=== PATIENT | male | born 1980 | race Caucasian/White ===

== ENCOUNTER → 2018-01-03 | Outpatient (CLI) | payer BC ==
--- NOTE | 2018-01-04 08:15 | MR ---
EXAMINATION TYPE: MR knee RT wo con DATE OF EXAM: 01/03/2018 COMPARISON: 11/30/2017 outside radiographs of the right knee HISTORY: Rt knee pain x 6 mos TECHNIQUE: Multiplanar, multisequence imaging of the right knee is performed without IV contrast. FINDINGS: MEDIAL MENISCUS: .Anterior and posterior horns are intact without tear. LATERAL MENISCUS: There is abnormal morphology and longitudinal tear of the anterior horn of the late ral meniscus with thickening of the meniscal femoral ligament, associated 3 mm meniscal extrusion, an d 8 mm parameniscal cyst CRUCIATE LIGAMENTS: The anterior and posterior cruciate ligaments are intact and unremarkable. COLLATERAL LIGAMENTS: The medial collateral ligament and lateral collateral ligament complex are inta ct and unremarkable. EXTENSOR MECHANISM: Visualized quadriceps and patellar tendons are intact. There is minimal intrinsic high signal within the insertional fibers of the quadriceps tendon indicative of mild tendinosis. EFFUSION: No significant suprapatellar joint effusion. POPLITEAL CYST: Very small unilocular popliteal cyst is present. TRICOMPARTMENT SPACES: There are small superior patellar pole and lateral compartment marginal osteop hytes. Very small marginal osteophyte is seen of the anterior medial distal femoral condyle. CARTILAGE: Focal signal abnormality is seen of the lateral facet patellar cartilage with fissure supe riorly. Generalized thinning of the medial facet is noted. Trochlear cartilage is unremarkable. No fu ll or partial thickness defect is seen of the medial compartment, however there is signal heterogenei ty of the cartilage. Partial thickness cartilaginous defect of the lateral compartment measures 1.0 x 1.2 cm at the medial anterior weightbearing surface. BONE MARROW SIGNAL: No focal abnormal marrow signal is appreciated. OTHER: Minimal nonspecific infrapatellar subcutaneous edema seen. IMPRESSION: 1. Longitudinal tear of the anterior horn of the lateral meniscus with associated 3 mm meniscal extru rosalie and 8 mm parameniscal cyst. 2. Mild quadriceps insertional tendinosis. 3. Mild tricompartmental arthrosis and chondrosis with partial-thickness cartilaginous defect of the weightbearing surface of the lateral compartment measuring 1.0 x 1.2 cm.
== END | disposition home or self-care (01) ==
LOC: RADMRIMAIN 15:39
PROVIDERS: ATTEND Orthopaedic Surgery
DX: S83.281A Other tear of lateral meniscus, current injury, right knee, initial encounter (principal); M17.11 Unilateral primary osteoarthritis, right knee

== ENCOUNTER → 2018-07-25 | Outpatient (CLI) | payer BC ==
[2018-07-25 15:49] LABS: Basophils # (A) 0.1 k/uL (0-0.2); Basophils % (A) 1 %; Eosinophils # (A) 0.2 k/uL (0-0.7); Eosinophils % (A) 2 %; HCT 44.5 % (39.0-53.0); HGB 14.6 gm/dL (13.0-17.5); Lymphocytes # (A) 3.5 k/uL (1.0-4.8); Lymphocytes % (A) 38 %; MCH 28.4 pg (25.0-35.0); MCHC 32.8 g/dL (31.0-37.0); MCV 86.6 fL (80.0-100.0); Mean Platelet Volume 6.8; Monocytes # (A) 0.6 k/uL (0-1.0); Monocytes % (A) 7 %; Neutrophils # (A) 4.7 k/uL (1.3-7.7); Neutrophils % (A) 50 %; Platelet Count 286 k/uL (150-450); RBC 5.14 m/uL (4.30-5.90); RDW 13.2 % (11.5-15.5); WBC 9.3 k/uL (3.8-10.6)
[2018-07-25 16:02] LABS: Potassium 3.9 mmol/L (3.5-5.1)
== END | disposition home or self-care (01) ==
LOC: LABPAT 15:04
PROVIDERS: ATTEND Orthopaedic Surgery
DX: Z01.818 Encounter for other preprocedural examination (principal); Z01.812 Encounter for preprocedural laboratory examination; M23.91 Unspecified internal derangement of right knee
CPT/HCPCS: 36415; 80051; 85025; 93005

== ENCOUNTER 2018-08-04 10:49 | Day surgery (SDC) | payer BC ==
[2018-08-02 14:51] VITALS: BMI 38.2
--- NOTE | 2018-08-03 17:21 | HP ---
HISTORY AND PHYSICAL DATE OF SURGERY: 08/04/2018 Rolo Mason is a 37-year-old patient seen with progressive right knee pain. We discussed options. He elected to proceed with arthroscopy. Consent was obtained. PAST MEDICAL HISTORY: Asthma. PAST SURGICAL HISTORY: Gastric sleeve, right knee arthroscopy. DAILY MEDICATIONS: Pristiq. ALLERGIES: NONE. SOCIAL HISTORY: Patient denies tobacco use. PHYSICAL EVALUATION OF RIGHT KNEE: Range of motion is 0 to 120 degrees. Mild effusion. Tenderness along the medial and lateral joint lines. Positive medial Patrice's. Positive lateral Patrice's. Ligaments are stable. Hip rotation is without pain. Distal neurovascular exam is intact. RADIOGRAPHS: Radiographs of the right knee revealed mild osteoarthritis. MRI of the right knee revealed a lateral meniscal tear. IMPRESSION: 1. Internal derangement of right knee with lateral meniscal tear. 2. Asthma. PLAN: Right knee arthroscopy with partial meniscectomy and debridement. MMODL / IJN: [id number] /
[~2018-08-04 10:49] MED LIST: DEXAMETHASONE SOD PHOSPHATE 10 MG/ML 1 ML VIAL IV ONE; LACTATED RINGERS 1,000 ML IV SCH; LIDOCAINE 1% 20 ML VIAL (10MG/ML) FOR IV START INTRADERMA PRN; MIDAZOLAM (PF) 2 MG/2 ML VIAL IV PRN; ONDANSETRON 4 MG/2 ML VIAL IVP ONE; ceFAZolin IN SWFI 2 GM/20 ML SYRINGE IVP ONE; fentaNYL (PF) 50 MCG/ML 2 ML AMP IV PRN
[2018-08-04] MEDS ORDERED: SUCCINYLCHOLINE CHLORIDE 100 MG/5 ML SYR IV ONE (12:18)
[2018-08-04] MEDS ORDERED: PROPOFOL 10 MG/ML 20 ML VIAL IV ONE (12:18)
[2018-08-04] MEDS ORDERED: LIDOCAINE 1% INJ 10MG/ML (20 ML MDV) ONE (12:18)
[2018-08-04] MEDS ORDERED: fentaNYL (PF) 50 MCG/ML 2 ML AMP ONE (12:18)
[2018-08-04] MEDS ORDERED: MIDAZOLAM 2 MG/2 ML VIAL ONE (12:18)
[2018-08-04] MEDS ORDERED: LACTATED RINGERS 1,000 ML IV ONE (13:08)
--- NOTE | 2018-08-04 13:23 | P.OP ---
Date of Procedure: 08/04/18 Preoperative Diagnosis: Internal derangement right knee Postoperative Diagnosis: 1. Lateral meniscal tear right knee 2. Reactive synovitis lateral and suprapatellar compartments right knee 3. Loose body right knee Procedure(s) Performed: 1. Arthroscopic partial lateral meniscectomy right knee 2. Arthroscopic partial synovectomy lateral and suprapatellar compartments right knee 3. Arthroscopic removal loose body right knee Anesthesia: BECKAA, local Surgeon: Denilson Romero Estimated Blood Loss (ml): 5 Pathology: none sent Condition: stable Disposition: PACU Indications for Procedure: 37-year-old patient seen with progressive right knee pain. After treatment options were discussed, he elected to proceed with arthroscopy. Operative Findings: see description of procedure Description of Procedure: Patient was taken to the operative suite. Patient underwent a general anesthetic by the department of anesthesia. Patient was given preoperative antibiotics. The right lower extremity was placed in a well-padded arthroscopic leg humphries. The right leg was prepped and draped in the normal sterile orthopedic fashion. A lateral parapatellar and suprapatellar incision was made. Trochars were inserted. Arthroscopy was initiated. Suprapatellar pouch revealed diffuse thick reactive synovitis. The patellofemoral joint appeared to articulate congruently. There was grade 1 chondromalacia with no osteochondral tears present. The scope was guided into the medial gutter. No loose bodies or plica were identified. The scope was then guided into the medial compartment. A medial parapatellar incision was made. Trocar inserted followed by probe. The medial meniscus was probed and found to be intact. There was some mild fraying along the anterior horn area with no obvious full- thickness tear present. There was no synovitis. There was no chondromalacia. Scope and probe were then guided into the intercondylar notch. Cruciates were identified, probed and found to be stable. The scope and probe were then guided into lateral compartment. There was a complex mid body lateral meniscal tear present. Upon further exploration there was a single suture in the center of the complex tear consistent with a previous repair. There was thick reactive synovitis anteriorly. I performed a partial lateral meniscectomy down to stable meniscal tissue. I did note a loose body/foreign body. It appeared to be from the previous repair. A pituitary forceps was introduced and this loose body was removed without difficulty. It was a peek anchors probably utilized with the previous repair. The shaver was now reintroduced I performed a partial synovectomy decompressing the reactive synovitis. The residual meniscus was probed and found to be stable. There was good decompression of the synovitis. There was an area of grade 1 chondromalacia lateral femoral condyle but no osteochondral tears were present. The scope was in guided back into the suprapatellar compartment. I introduced the motorized shaver into the super patellar compartment. I debrided some piecemeal fragments of meniscus I encountered. I performed a partial synovectomy decompressing reactive synovitis. I took one more look on the entire knee, no residual debris. Instruments were now removed from the joint. The joint was infiltrated with .25 % Marcaine. Steri-Strips were applied to the portal sites. Sterile dressings were applied. The patient was placed into a CATHY hose. No tourniquet was utilized. The patient was awakened, transferred to a bed and taken to recovery stable satisfactory condition.
[2018-08-04 13:31] VITALS: TEMP 97.8
[2018-08-04] MEDS ORDERED: HYDROmorphone 1 MG/ML 1 ML SYRINGE IVP ONE (13:36)
[2018-08-04 13:53] VITALS: RESP 16
[2018-08-04 14:58] VITALS: BP 118/68; PULSE 90
== END 2018-08-04 14:56 | disposition home or self-care (01) ==
LOC: OR 10:49
PROVIDERS: ATTEND Orthopaedic Surgery
DX: S83.281A Other tear of lateral meniscus, current injury, right knee, initial encounter (principal); X58.XXXA Exposure to other specified factors, initial encounter; M65.861 Other synovitis and tenosynovitis, right lower leg; M22.41 Chondromalacia patellae, right knee; J45.909 Unspecified asthma, uncomplicated; Z98.84 Bariatric surgery status; Z87.891 Personal history of nicotine dependence; K21.9 Gastro-esophageal reflux disease without esophagitis; Z79.899 Other long term (current) drug therapy; Z91.010 Allergy to peanuts
CPT/HCPCS: 29881; J2250; J1100; J2405; J2001; J3010; J1170; J0330; J2704; J0690

== ENCOUNTER → 2019-07-06 | Outpatient (CLI) | payer BC ==
[2019-07-06 15:26] VITALS: BP 133/88; PULSE 86; TEMP 98.4; BMI 37.5
--- NOTE | 2019-07-06 21:14 | P.BASOAP ---
Subjective Progress Note Date: 07/06/19 Principal diagnosis: Morbid obesity Patient returns for follow-up visit. He has lost weight. He is still using Adipex although just recently completed his prescription. He is also doing CrossFit and ketones diet. He is not interested in duodenal switch at this time. Mild reflux at times. Requesting a refill on his Adipex. Blood pressure stable today 133/88. Objective - Vital Signs Vital signs: Vital Signs Temp 98.4 F 07/06/19 15:22 Pulse 86 07/06/19 15:22 Resp BP 133/88 07/06/19 15:22 Pulse Ox Intake & Output 07/06/19 07/06/19 07/07/19 06:59 18:59 06:59 Weight 102.512 kg - Exam Abdomen: Soft, nontender, nondistended Assessment/Plan (1) Morbid obesity Narrative/Plan: Patient doing fairly well. Still struggling with weight loss although improved on Adipex and increased exercise lately. We'll refill prescription for AcipHex at this time. He will continue to consider his surgical options. Plan: Date: 07/06/19 Initial Weight: Initial BMI: Current Weight: 102.512 kg Current BMI: 37.5 Type of Surgery: Total Volume in Band: Previous Volume: Volume Removed: Volume Added: Band Size:
== END | disposition home or self-care (01) ==
LOC: BARWHC3 14:41
PROVIDERS: ATTEND Surgery
DX: E66.01 Morbid (severe) obesity due to excess calories (principal); Z68.37 Body mass index [BMI] 37.0-37.9, adult; K21.9 Gastro-esophageal reflux disease without esophagitis
CPT/HCPCS: 99211

== ENCOUNTER → 2020-08-06 | Outpatient (CLI) | payer BC ==
[2020-08-06 15:27] VITALS: BP 122/78; PULSE 80; RESP 16; TEMP 98; BMI 42.9
--- NOTE | 2020-08-06 16:40 | P.BASOAP ---
Subjective Progress Note Date: 08/06/20 Principal diagnosis: Morbid obesity Patient returns for reevaluation. Last seen 1 year ago. Since that the patient has had further weight gain of 32 pounds. Patient complaining of increasing reflux recently. Has had some episodes of regurgitation and possibly even aspiration while sleeping. Usually has episodes of regurgitation 2-3 times per month. Patient was previously considering conversion to duodenal switch. Here for possible endoscopy. Taking PPIs and H2 blockers daily. Patient having significant right knee pain and require surgery in the near future. Objective - Vital Signs Vital signs: Vital Signs Temp 98 F 08/06/20 15:24 Pulse 80 08/06/20 15:24 Resp 16 08/06/20 15:24 BP 122/78 08/06/20 15:24 Pulse Ox Intake & Output 08/05/20 08/06/20 08/06/20 18:59 06:59 18:59 Weight 117.027 kg - Exam Abdomen: Soft, nontender, nondistended Assessment/Plan (1) Morbid obesity Narrative/Plan: 39-year-old male with ongoing weight gain after previous lap sleeve gastrectomy. Had done quite well for some time only to have weight gain. Patient now with significant acid reflux. Previously discussed options of duodenal switch. Given the patient's worsening acid reflux favor conversion to Fior-en-Y gastric bypass. We'll make appointment for the patient to be seen at [facility] bariatric clinic. Discussed that we could proceed with upper endoscopy if requested by the bariatric center. Patient requesting a refill on his Adipex which he has not taken since earlier this year. We'll provide refill. Plan: Date: 08/06/20 Initial Weight: 122.47 kg Initial BMI: 44.9 Current Weight: 117.027 kg Current BMI: 42.9 Type of Surgery: Total Volume in Band: Previous Volume: Volume Removed: Volume Added: Band Size:
== END | disposition home or self-care (01) ==
LOC: BARWHC3 15:05
PROVIDERS: ATTEND Surgery
DX: E66.01 Morbid (severe) obesity due to excess calories (principal); Z68.41 Body mass index [BMI] 40.0-44.9, adult
CPT/HCPCS: 99211

== ENCOUNTER → 2020-09-17 | Outpatient (CLI) | payer BC ==
[2020-09-17 14:59] LABS: Basophils # (A) 0.07 X 10*3/uL (0.00-0.10); Basophils % (A) 1.2 %; Eosinophils # (A) 0.11 X 10*3/uL (0.04-0.35); Eosinophils % (A) 1.8 %; HCT 43.9 % (39.6-50.0); HGB 14.5 g/dL (13.0-17.0); Lymphocytes # (A) 2.06 X 10*3/uL (0.90-5.00); Lymphocytes % (A) 34.2 %; MCH 28.3 pg (27.0-32.0); MCV 85.7 fL (80.0-97.0); Mean Platelet Volume 10.8 fL (9.5-12.2); Monocytes # (A) 0.53 X 10*3/uL (0.20-1.00); Monocytes % (A) 8.8 %; Neutrophils # (A) 3.24 X 10*3/uL (1.80-7.70); Neutrophils % (A) 53.8 %; Platelet Count 298 X 10*3/uL (140-440); RBC 5.12 X 10*6/uL (4.40-5.60); RDW 12.9 % (11.5-14.5); WBC 6.02 X 10*3/uL (4.50-10.00)
[2020-09-17 15:32] LABS: % Iron Saturation 35.81 (15.00-50.00); African American GFR (CKD) 124.3 (60.0-200.0); Albumin 4.6 g/dL (3.80-4.90); Albumin/Globulin Ratio 2.71 (1.60-3.17); Anion Gap 7.7 mmol/L (4.00-12.00); BUN/Creat Ratio 16.67 Ratio (12.00-20.00); Calcium 9.3 mg/dL (8.7-10.3); Carbon Dioxide 30.3 mmol/L (21.6-31.8); Chol/HDL Ratio 3.15; Globulin 1.7 g/dL (1.6-3.3); LDL Cholesterol,Calculated 94.6 mg/dL (0.0-131.0); Non-African American GFR(CKD) 107.2 (60.0-200.0); Potassium 4.6 mmol/L (3.5-5.5); Total Bilirubin 0.7 mg/dL (0.2-1.2); Total Protein 6.3 g/dL (6.2-8.2); VLDL Calculation 17.4 mg/dL (5.00-40.00)
[2020-09-17 15:35] LABS: T4, Free (Free Thyroxine) 1.1 ng/dL (0.80-1.80)
[2020-09-17 15:36] LABS: Ferritin 112.5 ng/mL (22.0-322.0)
[2020-09-17 15:37] LABS: Folate, Serum 11.8 ng/mL
[2020-09-17 17:21] LABS: Hemoglobin A1C 5.9 % (4.0-6.0)
== END | disposition home or self-care (01) ==
LOC: LABWHC1 08:25
PROVIDERS: ATTEND Surgery
DX: Z01.818 Encounter for other preprocedural examination (principal); Z01.812 Encounter for preprocedural laboratory examination; E66.01 Morbid (severe) obesity due to excess calories
CPT/HCPCS: 36415; 80053; 80061; 82306; 82607; 82728; 82746; 83036; 83540; 83550; 83970; 84425; 84439; 84443; 85025; 93005

== ENCOUNTER → 2020-10-08 | Outpatient (CLI) | payer BC ==
[2020-10-08 15:44] VITALS: BP 128/82; PULSE 85; TEMP 98.2; BMI 42.5
--- NOTE | 2020-10-08 17:55 | P.BASOAP ---
Subjective Progress Note Date: 10/08/20 Principal diagnosis: Morbid obesity Patient returns for evaluation. Still having bad reflux. If anything reflux worse. He was seen by the bariatric team at [facility]. He is being evaluated for conversion to gastric bypass. Patient would like to move his EGD up from 11/12. Objective - Vital Signs Vital signs: Vital Signs Temp 98.2 F 10/08/20 15:43 Pulse 85 10/08/20 15:43 Resp BP 128/82 10/08/20 15:43 Pulse Ox Intake & Output 10/07/20 10/08/20 10/08/20 18:59 06:59 18:59 Weight 116.12 kg - Exam Abdomen: Soft, nontender, nondistended Assessment/Plan (1) Morbid obesity Narrative/Plan: Patient remains interested in conversion to gastric bypass after being seen by the bariatric chain at [facility]. He would like to have his EGD performed sooner so that he can have his definitive procedure done sooner given his worsening reflux. Will move his EGD up to next Wednesday. Plan: Date: 10/08/20 Initial Weight: 122.47 kg Initial BMI: 44.9 Current Weight: 116.12 kg Current BMI: 42.5 Type of Surgery: Total Volume in Band: Previous Volume: Volume Removed: Volume Added: Band Size:
== END | disposition home or self-care (01) ==
LOC: BARWHC3 15:31
PROVIDERS: ATTEND Surgery
DX: E66.01 Morbid (severe) obesity due to excess calories (principal); Z68.41 Body mass index [BMI] 40.0-44.9, adult
CPT/HCPCS: 99211

== ENCOUNTER → 2020-10-10 | Outpatient (CLI) | payer BC ==
--- NOTE | 2020-10-10 10:20 | FL ---
EXAMINATION TYPE: FL UGI air w esophagus DATE OF EXAM: 10/10/2020 9:28 AM COMPARISON: NONE CLINICAL HISTORY: Difficulty in swallowing. Preliminary view of the abdomen reveals a normal bowel gas pattern. Upper GI examination was performed according to the single contrast technique. Barium was swallowed without difficulty or delay. Esophageal peristalsis and motility are within normal limits. There is no evidence for esophagitis, intraluminal mass, hiatal hernia or gastroesophageal reflux. There has been previous gastric sleeve without obstruction or leak. The duodenal bulb and sweep are also free of intraluminal lesion or ulcer crater. IMPRESSION: There has been previous gastric sleeve without obstruction or leak.
== END | disposition home or self-care (01) ==
LOC: RADUSWWP 08:55
PROVIDERS: ATTEND Surgery
DX: Z01.818 Encounter for other preprocedural examination (principal); Z01.812 Encounter for preprocedural laboratory examination; K21.00 Gastro-esophageal reflux disease with esophagitis, without bleeding; E66.01 Morbid (severe) obesity due to excess calories; Z98.84 Bariatric surgery status
CPT/HCPCS: 74246

== ENCOUNTER 2020-10-15 10:24 | Day surgery (SDC) | payer BC ==
[2020-10-10 15:05] VITALS: BMI 42.5
[~2020-10-15 10:24] MED LIST changes: -DEXAMETHASONE SOD PHOSPHATE 10 MG/ML 1 ML VIAL IV ONE; +LIDOCAINE 1% (10MG/ML) FOR IV START INTRADERMA PRN; -LIDOCAINE 1% 20 ML VIAL (10MG/ML) FOR IV START INTRADERMA PRN; -MIDAZOLAM (PF) 2 MG/2 ML VIAL IV PRN; -ONDANSETRON 4 MG/2 ML VIAL IVP ONE; -ceFAZolin IN SWFI 2 GM/20 ML SYRINGE IVP ONE; -fentaNYL (PF) 50 MCG/ML 2 ML AMP IV PRN
[2020-10-15 10:48] VITALS: TEMP 97.4
[2020-10-15] MEDS ORDERED: PROPOFOL 10 MG/ML 20 ML VIAL IV ONE (11:13)
[2020-10-15] MEDS ORDERED: fentaNYL (PF) 50 MCG/ML 2 ML AMP ONE (11:13)
[2020-10-15] MEDS ORDERED: LIDOCAINE 1% INJ 10MG/ML (20 ML MDV) ONE (11:13)
--- NOTE | 2020-10-15 11:20 | P.GSHP ---
History of Present Illness H&P Date: 10/15/20 Chief Complaint: GERD Patient here today for upper endoscopy. Patient has had worsening reflux. History of previous sleeve gastrectomy. Being evaluated for possible conversion to gastric bypass. Past Medical History Past Medical History: GERD/Reflux, Osteoarthritis (OA) Additional Past Medical History / Comment(s): no longer has sleep apnea since weight loss, osteoarthritis bilateral knees, History of Any Multi-Drug Resistant Organisms: None Reported Past Surgical History: Bariatric Surgery, Orthopedic Surgery Additional Past Surgical History / Comment(s): gastric sleeve 2012, multiple dariana. knee surgeries (most recent Right 08/04/18), fatty lipoma removed from back of neck, dariana carpal tunnel Past Anesthesia/Blood Transfusion Reactions: No Reported Reaction Past Psychological History: No Psychological Hx Reported Smoking Status: Former smoker Past Alcohol Use History: Occasional Additional Past Alcohol Use History / Comment(s): smoked x 2years (2-3 cigarettes/day) Quit in 2004 Past Drug Use History: None Reported - Past Family History Mother Family Medical History: Unable to Obtain Additional Family Medical History / Comment(s): patient was adopted Medications and Allergies Home Medications Medication Instructions Recorded Confirmed Type Fluticasone Nasal [place] [Flonase 2 spr EA NOSTRIL DAILY 08/02/18 10/10/20 History Nasal [place]] Phentermine HCl [Adipex P] 15 mg PO AC-BRKFST 30 Days #30 cap 08/06/20 10/10/20 Rx Cetirizine HCl [Zyrtec] 10 mg PO HS 10/10/20 10/10/20 History Omeprazole 40 mg PO BID 10/10/20 10/10/20 History Allergies Allergy/AdvReac Type Severity Reaction Status Date / Time peanut Allergy Anaphylaxis Verified 10/10/20 14:59 Surgical - Exam Vital Signs Temp Pulse Resp BP Pulse Ox 97.4 F L 70 20 102/67 97 10/15/20 10:45 10/15/20 10:45 10/15/20 10:45 10/15/20 10:45 10/15/20 10:45 Physical exam: General: Well-developed, well-nourished HEENT: Normocephalic, sclerae nonicteric Abdomen: Nontender, nondistended Extremities: No edema Neuro: Alert and oriented Assessment and Plan (1) GERD (gastroesophageal reflux disease) Narrative/Plan: Will proceed with upper endoscopy Current Visit: Yes Status: Acute Code(s): K21.9 - GASTRO-ESOPHAGEAL REFLUX DISEASE WITHOUT ESOPHAGITIS SNOMED Code(s): 483317398
--- NOTE | 2020-10-15 11:29 | P.PCN ---
Date of Procedure: 10/15/20 Procedure(s) Performed: Preoperative Dx: Intractable reflux Postoperative Dx: Previous sleeve gastrectomy, moderate gastritis, suspect small hiatal hernia Procedure: EGD with Bx Anesthesia: Sedation Endoscopist: Dr. Dill Specimens: Antrum Endoscopic Procedure: The patient was on the endoscopy table in the left decubitus position. The Olympus gastroscope was inserted into the oropharynx and passed under direct visualization to the region of the third portion of the duodenum. From that point the scope was slowly withdrawn inspecting all surfaces carefully. There were no neoplastic inflammatory or polypoid lesions throughout the duodenum. The pylorus was widely patent. The stomach was carefully inspected. There was mild gastritis present. A biopsy of the antrum took place to rule out H. pylori. The patient had evidence of previous sleeve gastrectomy. The size of the sleeve appeared appropriate. No retroflexion took place. As we pulled the scope back the GE junction was present at 34 cm. I suspect there was a hiatal hernia present but it was difficult to state with certainty. Recent upper GI reviewed. Suspect small hernia on that study as well. Esophagus in its entirety appeared normal. The patient was then taken to the recovery room in stable condition per anesthesia guidelines. Recommendations: Await biopsy results. Continue evaluation for possible conversion to gastric bypass. We'll order CT chest to better evaluate for presence of hiatal hernia.
[2020-10-15 11:33] VITALS: RESP 16
[2020-10-15 11:49] VITALS: BP 109/73; PULSE 76
== END 2020-10-15 12:02 | disposition home or self-care (01) ==
LOC: ORWHC2ENDO 10:24
PROVIDERS: ATTEND Surgery
DX: K29.70 Gastritis, unspecified, without bleeding (principal); Z98.84 Bariatric surgery status; M17.0 Bilateral primary osteoarthritis of knee; Z98.890 Other specified postprocedural states; E66.01 Morbid (severe) obesity due to excess calories; Z68.41 Body mass index [BMI] 40.0-44.9, adult; Z87.891 Personal history of nicotine dependence; Z79.899 Other long term (current) drug therapy; Z91.010 Allergy to peanuts
CPT/HCPCS: 88305; 43239; J2001; J3010; J2704

== ENCOUNTER → 2020-12-02 | Outpatient (CLI) | payer BC ==
--- NOTE | 2020-12-03 05:40 | CT ---
"EXAMINATION TYPE: CT chest wo con DATE OF EXAM: 12/02/2020 COMPARISON: NONE HISTORY: Hiatal hernia. Epigastric pain for one year. CT DLP: 481.6 mGycm. Automated Exposure Control for Dose Reduction was Utilized. TECHNIQUE: CT scan of the thorax is performed without IV contrast. FINDINGS: LUNGS: There are multifocal areas of ground glass opacity throughout the bilateral upper and lower mari ngs. No pleural effusion or pneumothorax seen bilaterally. No concerning parenchymal nodules or emma s. MEDIASTINUM: Lack of IV contrast is noted to limit evaluation for mediastinal and especially hilar ad enopathy. There are no definitive greater than 1 cm hilar or mediastinal lymph nodes. No cardiomega ly or pericardial effusion is seen. OTHER: Surgical changes in the level of diaphragmatic hiatus are identified with sutures seen. Suspec t sutures from prior Kavon fundoplication surgery. There is moderate size hiatal hernia containing d ebris filled stomach. Visualized liver is slightly hypodense relative to spleen consistent with diffu se fatty infiltration. IMPRESSION: 1. Bilateral multifocal groundglass opacities strongly suspicious for covid-19 infection in current e nvironment, advise testing if this is not known finding. 2. Surgical changes to stomach with moderate size fixed hiatal hernia. A Yellow level critical message alert has been initiated for Johnathon Dill MD~[id number] via the [employer] | Critical Results System on 12/03/2020 5:38 AM. This message alert has been sent to Johnathon Dill MD~[id number] via the preferences provided by the clinician for the receipt of Radiology Critical F indings. Message ID [id number]."
== END | disposition home or self-care (01) ==
LOC: RADCTMAIN 16:29
PROVIDERS: ATTEND Surgery
DX: K44.9 Diaphragmatic hernia without obstruction or gangrene (principal); R91.8 Other nonspecific abnormal finding of lung field
CPT/HCPCS: 71250

== ENCOUNTER → 2021-02-18 | Outpatient (CLI) | payer BC | END | disposition home or self-care (01) | DX: A53.9 Syphilis, unspecified (principal) | CPT/HCPCS: 36415; 86780 ==